=== PATIENT | male | born 1955 | race Hispanic/Latino ===

== ENCOUNTER 2023-06-07 16:02 | Inpatient (IN) | payer OTHER ==
[2023-06-07] MEDS ORDERED: FAMOTIDINE 20 MG/2 ML VIAL IV ONE (16:34)
[2023-06-07] MEDS ORDERED: FENTANYL CITR 100 MCG/2 ML ONE (16:34)
[2023-06-07] MEDS ORDERED: ONDANSETRON 4 MG/2 ML VIAL ONE (16:34)
[2023-06-07] MEDS ORDERED: NA CHLORIDE 0.9% 1,000 ML ONE (16:35)
[2023-06-07 16:55] LABS: Absolute Lymphocytes (CBC) 1.8 K/uL (0.7-4.9); Hematocrit 42.5 % (39.6-49.0); Lymphocytes % 17.9 % (15.3-44.8); MCV 97.5 fL (80-100); Platelets 239 thou/uL (152-406); RBC Red Blood Cell Count 4.36 M/uL (4.33-5.43)
--- NOTE | 2023-06-07 17:02 | RAD REPORT ---
[facility] 4[facility]30 [facility] CLINICAL HISTORY: ABDOMINAL DISTENTION COMPARISON: CHEST PA AND LAT 2 VIEW dated 03/01/2009; CHEST PA AND LAT 2 VIEW dated 09/07/2008; CHEST PA AND LAT 2 VIEW dated 10/27/2005 TECHNIQUE: Portable AP view of the chest. FINDINGS: The lungs are clear. No pneumothorax or effusion. The cardiomediastinal contours are unre markable. IMPRESSION: No acute cardiopulmonary process.
[2023-06-07] MEDS ORDERED: MAGNESIUM SULFATE 1 gm IVPB 1 GM/100 ML BAG IV ONE (17:16)
[2023-06-07 17:30] LABS: Protime INR 1.65
[2023-06-07 18:10] LABS: Albumin 3.3 g/dL (3.4-5.0); Bilirubin Direct 0.1 mg/dL (0-0.2); Bilirubin Indirect, Calculated 0.5 mg/dL (0.2-0.8); Bilirubin Total 0.6 mg/dL (0.2-1.0); Potassium 4.8 mEq/L (3.5-5.1); Protein, Total 7.5 g/dL (6.4-8.2); Troponin High Sensitivity 11.8 pg/mL (<58.9)
--- NOTE | 2023-06-07 18:40 | ER ---
Nurse's Notes [facility] Name: Issa Escobar Age: 67 yrs Sex: Male : 1955 Arrival Date: 06/07/2023 Time: 16:02 Bed 5 Private MD: John Contreras Diagnosis: Abdominal tenderness-RIGHT FLANK;Acute kidney failure, unspecified;Persistent atrial fibrillation-WITH RVR;FPC (current) use of anticoagulants-ELIQUIS;Hydronephrosis with renal and ureteral calculous obstruction-2 MM UVJ Presentation: 06/07 16:18 Chief complaint: Patient states: R flank pain, bloating since night. No fever ll1 or N/V/D. Coronavirus screen: Vaccine status: Patient reports receiving the 2nd dose of the covid vaccine. Client denies travel out of the [place] in the last 14 days. At this time, the client does not indicate any symptoms associated with coronavirus-19. Ebola Screen: Patient denies travel to an Ebola-affected area in the 21 days before illness onset. Initial Sepsis Screen: Does the patient meet any 2 criteria? No. Patient's initial sepsis screen is negative. Does the patient have a suspected source of infection? Yes: Acute abdominal pain. Risk Assessment: Do you want to hurt yourself or someone else? Patient reports no desire to harm self or others. Onset of symptoms was June 04, 2023. 16:18 Method Of Arrival: Ambulatory ll1 16:18 Acuity: JACKY 2 ll1 Triage Assessment: 16:20 General: Appears uncomfortable, Behavior is calm, cooperative, appropriate for age. ll1 Pain: Complains of pain in R flank Pain currently is 2 out of 10 on a pain scale. GI: Reports lower abdominal pain, upper abdominal pain, bloating. Historical: - Allergies: 16:13 No Known Allergies; ll1 - PMHx: 16:13 Transient cerebral ischemia; stroke 2017; Hypertensive disorder; Hypercholesterolemia; ll1 - PSHx: 16:13 Cholecystectomy; hernia repair; B carpal tunnel repair; ll1 - Immunization history:: Adult Immunizations up to date. - Social history:: Smoking status: Patient denies any tobacco usage or history of. - Family history:: not pertinent. Screenin:30 [facility] ED Fall Risk Assessment (Adult) Score/Fall Risk Level 0 - 2 = Low Risk hb Oriented to surroundings, Maintained a safe environment, Educated pt \T\ family on fall prevention, incl call for assistance when getting out of bed. Abuse screen: Denies threats or abuse. Denies injuries from another. Nutritional screening: No deficits noted. Tuberculosis screening: No symptoms or risk factors identified. Assessment: 16:30 General: Appears in no apparent distress. Behavior is calm, cooperative. Pain: Pain hb currently is 7 out of 10 on a pain scale. Neuro: Level of Consciousness is awake, alert, obeys commands, Oriented to person, place, time, situation. Cardiovascular: Patient's skin is warm and dry. Respiratory: Respiratory effort is even, unlabored, Respiratory pattern is regular, symmetrical. GI: No signs and/or symptoms were reported involving the gastrointestinal system. Reports FLANK PAIN. : No signs and/or symptoms were reported regarding the genitourinary system. EENT: No signs and/or symptoms were reported regarding the EENT system. Derm: Skin is pink, warm \T\ dry. Musculoskeletal: No signs and/or symptoms reported regarding the musculoskeletal system. 18:09 Reassessment: Patient appears in no apparent distress at this time. Patient and/or hb family updated on plan of care and expected duration. Pain level reassessed. Patient is alert, oriented x 3, equal unlabored respirations, skin warm/dry/pink. 19:44 Reassessment: Unable to call report at this time. Nurse not available. tl4 Vital Signs: 16:18 BP 131 / 100; Pulse 128; Resp 18; Temp 98.7; Pulse Ox 98% ; Weight 89.81 kg; Height 5 ll1 ft. 6 in. ; Pain 2/10; 16:30 BP 131 / 87; Pulse 116; Resp 20; Pulse Ox 98% ; tl4 18:10 BP 124 / 86; Pulse 105; Resp 16; Pulse Ox 99% on R/A; hb 20:15 BP 129 / 97; Pulse 108; Resp 20; Pulse Ox 100% on R/A; tl4 16:18 Body Mass Index 31.96 (89.81 kg, 167.64 cm) ll1 16:18 Pain Scale: Adult ll1 [place] Coma Score: 18:31 Eye Response: spontaneous(4). Motor Response: obeys commands(6). Verbal Response: amelia oriented(5). Total: 15. NIH Stroke Scale Scores: 18:31 NIHSS Score: 0 amelia ED Course: 16:05 Patient arrived in ED. mr 16:05 John Contreras is Private Physician. mr 16:09 Arm band placed on Patient placed in an exam room, on a stretcher. tl4 16:17 Sravan Branham MD is Attending Physician. amelia 16:20 Triage completed. ll1 16:30 Patient has correct armband on for positive identification. Provided Education on: hb Tests, result times, medications. 16:30 No provider procedures requiring assistance completed. hb 16:32 XRAY Chest (1 view) In Process Unspecified. EDMS 18:08 Leslie Bird, MAC is Primary Nurse. hb 18:38 Spenser Lepe MD is Hospitalizing Provider. amelia 18:41 Abdomen In Process Unspecified. EDMS 20:30 Patient admitted, IV remains in place. tl4 Administered Medications: 16:42 Drug: Ondansetron IVP 4 mg IVP once; over 2 minutes Route: IVP; Site: right antecubital;hb 20:32 Follow up: Response: No adverse reaction tl4 16:42 Drug: Famotidine IVP 20 mg IVP once; dilute with 10 mL 0.9% NaCl; give over 2 minutes hb Route: IVP; Site: right antecubital; 20:30 Follow up: Response: No adverse reaction tl4 16:43 Drug: NS 0.9% IV 1000 ml IV at 1 bolus Per protocol; 1000 mL bolus Route: IV; Rate: 1 hb bolus; Site: right antecubital; 20:31 Follow up: Response: No adverse reaction; IV Status: Completed infusion; IV Intake: tl4 1000ml 16:43 Drug: fentaNYL (PF) IVP 50 mcg IVP once Route: IVP; Site: right antecubital; hb 20:32 Follow up: Response: No adverse reaction tl4 17:15 Drug: Magnesium Sulfate IVPB 1 grams IVPB once over 1 hrs Route: IVPB; Infused Over: 1 hb hrs; Site: right antecubital; 20:31 Follow up: Response: No adverse reaction; IV Status: Completed infusion; IV Intake: tl4 100ml 20:13 Drug: Rocephin IV 1 grams IV at per protocol once; Given slow IV push per pharmacy nw1 instructions Route: IV; Rate: per protocol; Site: right antecubital; 20:30 Follow up: Response: No adverse reaction; IV Status: Completed infusion tl4 20:14 Drug: Metoprolol PO 50 mg PO once Route: PO; nw1 20:30 Follow up: Response: No adverse reaction tl4 20:14 Drug: Flomax PO 0.4 mg PO once Route: PO; nw1 20:30 Follow up: Response: No adverse reaction tl4 Medication: 16:30 VIS not applicable for this client. hb Intake: 20:31 IV: 100ml; Total: 100ml. tl4 20:31 IV: 1000ml; Total: 1100ml. tl4 Outcome: 18:39 Decision to Hospitalize by Provider. amelia 20:29 Admitted to Med/surg accompanied by nurse, family with patient, via wheelchair, room tl4 221, with chart, Report called to MAC Carrasquillo 20:29 Condition: good 20:53 Patient left the ED. cm10 NIH Stroke Scale - NIH Stroke Score Date: 06/07/2023 Time: 18:31 Total Score = 0 10. Dysarthria (speech clarity - read or repeat words) - 0(Normal) 11. Extinction and Inattention (visual/tactile/auditory/spatial/personal) - 0(No abnormality) 1a. Level of Consciousness (LOC) - 0(Alert) 1b. Level of Consciousness (LOC) (Month \T\ Age) - 0(Both) 1c. LOC Commands (Open \T\ Closes Eyes/Stockroom Supervisor) - 0(Both) 2. Best Gaze (Lateral Gaze Paresis) - 0(Normal) 3. Visual Field Loss - 0(No visual loss) 4. Facial Palsy - 0(Normal) 5a. Left Arm: Motor (10-second hold) - 0(No drift) 5b. Right Arm: Motor (10-second hold) - 0(No drift) 6a. Left Leg: Motor (5-second hold - always test supine) - 0(No drift) 6b. Right Leg: Motor (5-second hold - always test supine) - 0(No drift) 7. Limb Ataxia (finger/nose \T\ heel/ramirez - test with eyes open) - 0(Absent) 8. Sensory Loss (pinprick arms/legs/face) - 0(Normal) 9. Best Language: Aphasia (description/naming/reading) - 0(No aphasia) Initials: [facility] Signatures: Dispatcher [employer] Sravan Ferrera MD MD cha Rivera, Ramona, [facility] Reg mr Leslie Bird, RN RN Kamari Carmichael RN RN ll1 Chantell العلي RN RN cm10 Tanya Cross RN RN nw1 [facility], Ramiro 4
--- NOTE | 2023-06-07 18:40 | EDPHYS ---
Physician Documentation [facility] Name: Issa Escobar Age: 67 yrs Sex: Male : 1955 Arrival Date: 06/07/2023 Time: 16:02 Bed 5 Private MD: John Contreras ED Physician Sravan Branham HPI: 06/07 18:31 This 67 yrs old Male presents to ER via Ambulatory with complaints of amelia Abdominal Pain, Back Pain. 18:31 The patient presents with pain that is acute, with no known mechanism of injury. The amelia symptoms are located in the low back, right mid back and right low back. Onset: The symptoms/episode began/occurred 2 day(s) ago. The pain radiates to the right mid back and right low back. Associated signs and symptoms: The patient has no apparent associated signs or symptoms. The problem was sustained from unknown cause. Modifying factors: The patient symptoms are alleviated by nothing. Severity of symptoms: At their worst the symptoms were moderate, in the emergency department the symptoms are unchanged. The patient has not experienced similar symptoms in the past. Historical: - Allergies: 16:13 No Known Allergies; ll1 - PMHx: 16:13 Transient cerebral ischemia; stroke 2017; Hypertensive disorder; Hypercholesterolemia; ll1 - PSHx: 16:13 Cholecystectomy; hernia repair; B carpal tunnel repair; ll1 - Immunization history:: Adult Immunizations up to date. - Social history:: Smoking status: Patient denies any tobacco usage or history of. - Family history:: not pertinent. ROS: 18:31 Constitutional: Negative for fever, chills, and weight loss, Eyes: Negative for injury, amelia pain, redness, and discharge, ENT: Negative for injury, pain, and discharge, Neck: Negative for injury, pain, and swelling, Respiratory: Negative for shortness of breath, cough, wheezing, and pleuritic chest pain, Abdomen/GI: Negative for abdominal pain, nausea, vomiting, diarrhea, and constipation, : Negative for injury, bleeding, discharge, and swelling, MS/Extremity: Negative for injury and deformity, Skin: Negative for injury, rash, and discoloration, Neuro: Negative for headache, weakness, numbness, tingling, and seizure, Psych: Negative for depression, anxiety, suicide ideation, homicidal ideation, and hallucinations, Allergy/Immunology: Negative for hives, rash, and allergies, Endocrine: Negative for neck swelling, polydipsia, polyuria, polyphagia, and marked weight changes, 18:31 Cardiovascular: Positive for palpitations, 18:31 Back: Positive for pain at rest, pain with movement, radiated pain, of the right mid back and right low back, Exam: 18:31 Constitutional: This is a well developed, well nourished patient who is awake, alert, amelia and in no acute distress. Head/Face: Normocephalic, atraumatic. Eyes: Pupils equal round and reactive to light, extra-ocular motions intact. Lids and lashes normal. Conjunctiva and sclera are non-icteric and not injected. Cornea within normal limits. Periorbital areas with no swelling, redness, or edema. ENT: Nares patent. No nasal discharge, no septal abnormalities noted. Tympanic membranes are normal and external auditory canals are clear. Oropharynx with no redness, swelling, or masses, exudates, or evidence of obstruction, uvula midline. Mucous membranes moist. Neck: Trachea midline, no thyromegaly or masses palpated, and no cervical lymphadenopathy. Supple, full range of motion without nuchal rigidity, or vertebral point tenderness. No Meningismus. Chest/axilla: Normal chest wall appearance and motion. Nontender with no deformity. No lesions are appreciated. Cardiovascular: Regular rate and rhythm with a normal S1 and S2. No gallops, murmurs, or rubs. Normal PMI, no JVD. No pulse deficits. Respiratory: Lungs have equal breath sounds bilaterally, clear to auscultation and percussion. No rales, rhonchi or wheezes noted. No increased work of breathing, no retractions or nasal flaring. Abdomen/GI: Soft, non-tender, with normal bowel sounds. No distension or tympany. No guarding or rebound. No evidence of tenderness throughout. Male : Normal genitalia with no discharge or lesions. Skin: Warm, dry with normal turgor. Normal color with no rashes, no lesions, and no evidence of cellulitis. MS/ Extremity: Pulses equal, no cyanosis. Neurovascular intact. Full, normal range of motion. Neuro: Awake and alert, GCS 15, oriented to person, place, time, and situation. Cranial nerves II-XII grossly intact. Motor strength 5/5 in all extremities. Sensory grossly intact. Cerebellar exam normal. Normal gait. Psych: Awake, alert, with orientation to person, place and time. Behavior, mood, and affect are within normal limits. 18:31 ECG was reviewed by the Attending Physician. 18:31 Back: pain, that is mild, of the right mid back, ROM is normal, normal spinal alignment noted, CVA tenderness, is absent, vertebral tenderness, is not appreciated, muscle spasm, is not present, Vital Signs: 16:18 BP 131 / 100; Pulse 128; Resp 18; Temp 98.7; Pulse Ox 98% ; Weight 89.81 kg; Height 5 ll1 ft. 6 in. ; Pain 2/10; 16:30 BP 131 / 87; Pulse 116; Resp 20; Pulse Ox 98% ; tl4 18:10 BP 124 / 86; Pulse 105; Resp 16; Pulse Ox 99% on R/A; hb 20:15 BP 129 / 97; Pulse 108; Resp 20; Pulse Ox 100% on R/A; tl4 16:18 Body Mass Index 31.96 (89.81 kg, 167.64 cm) ll1 16:18 Pain Scale: Adult ll1 NIH Stroke Scale Scores: 18:31 NIHSS Score: 0 amelia Ree Coma Score: 18:31 Eye Response: spontaneous(4). Motor Response: obeys commands(6). Verbal Response: amelia oriented(5). Total: 15. MDM: 16:17 Patient medically screened. amelia 18:35 Differential diagnosis: chronic back pain, Fatigue Fracture Hydronephrosis Joint Injury amelia Metastatic Disease Neoplasm Obesity Osteoarthritis Pyelonephritis Renal Infarction ruptured disc, Scoliosis spinal injury, sprain, Ureterolithiasis vertebral fracture. Data reviewed: vital signs, nurses notes, lab test result(s), EKG, radiologic studies, CT scan, plain films. Consideration of Admission/Observation Patient was admitted/placed on observation. Escalation of care including admission/observation considered. I considered the following discharge prescriptions or medication management in the emergency department Medications were administered in the Emergency Department. See MAR. Independent interpretation of the following test(s) in the Emergency Department EKG: See my EKG interpretation above. Test considered but Not performed: Ultrasound NO RENAL USG. Historians other than the Patient: PT WELL INFORMED. Care significantly affected by the following chronic conditions: Hypertension, Obesity, CVA, HIGH CHLESTEROL. Counseling: I had a detailed discussion with the patient and/or guardian regarding the historical points, exam findings, and any diagnostic results supporting the discharge/admit diagnosis, lab results, radiology results, the need for further work-up and treatment in the hospital. 06/07 16:18 Order name: Basic Metabolic Panel; Complete Time: 18:28 [facility] 06/07 16:18 Order name: CBC with Diff; Complete Time: 18:28 [facility] 06/07 16:18 Order name: LFT's; Complete Time: 18:28 [facility] 06/07 16:18 Order name: Magnesium; Complete Time: 18:28 [facility] 06/07 16:18 Order name: NT PRO-BNP; Complete Time: 18:28 [facility] 06/07 16:18 Order name: PT-INR; Complete Time: 18:28 [facility] 06/07 16:18 Order name: Troponin HS; Complete Time: 18:28 [facility] 06/07 16:18 Order name: Lipase; Complete Time: 18:28 [facility] 06/07 16:18 Order name: Urinalysis w/ reflexes [facility] 06/07 16:55 Order name: TSH; Complete Time: 18:28 [facility] 06/07 19:16 Order name: CBC with Automated Diff [facility] 06/07 19:16 Order name: CBC with Automated Diff EDMS 06/07 19:16 Order name: Comprehensive Metabolic Panel [facility] 06/07 19:16 Order name: Comprehensive Metabolic Panel [facility] 06/07 16:18 Order name: XRAY Chest (1 view); Complete Time: 18:28 [facility] 06/07 18:25 Order name: Abdomen [facility]UT 06/07 16:18 Order name: EKG; Complete Time: 16:18 [facility] 06/07 16:18 Order name: Cardiac monitoring; Complete Time: 16:43 [facility] 06/07 16:18 Order name: EKG - Nurse/Tech; Complete Time: 16:43 [facility] 06/07 16:18 Order name: IV Saline Lock; Complete Time: 16:43 [facility] 06/07 16:18 Order name: Labs collected and sent; Complete Time: 16:43 [facility] 06/07 16:18 Order name: O2 Per Protocol; Complete Time: 16:43 [facility] 06/07 16:18 Order name: O2 Sat Monitoring; Complete Time: 16:43 [facility] 06/07 16:59 Order name: Misc. Order: recollect green top; Complete Time: 18:04 EC:31 Rate is 103 beats/min. Rhythm is irregularly irregular. QRS [place] is Normal. [place] interval amelia is normal. QRS interval is normal. QT interval is normal. No Q waves. T waves are Normal. No ST changes noted. Clinical impression: Atrial Fibrillation. Interpreted by me. Reviewed by me. Administered Medications: 16:42 Drug: Ondansetron IVP 4 mg IVP once; over 2 minutes Route: IVP; Site: right antecubital;hb 20:32 Follow up: Response: No adverse reaction tl4 16:42 Drug: Famotidine IVP 20 mg IVP once; dilute with 10 mL 0.9% NaCl; give over 2 minutes hb Route: IVP; Site: right antecubital; 20:30 Follow up: Response: No adverse reaction tl4 16:43 Drug: NS 0.9% IV 1000 ml IV at 1 bolus Per protocol; 1000 mL bolus Route: IV; Rate: 1 hb bolus; Site: right antecubital; 20:31 Follow up: Response: No adverse reaction; IV Status: Completed infusion; IV Intake: tl4 1000ml 16:43 Drug: fentaNYL (PF) IVP 50 mcg IVP once Route: IVP; Site: right antecubital; hb 20:32 Follow up: Response: No adverse reaction tl4 17:15 Drug: Magnesium Sulfate IVPB 1 grams IVPB once over 1 hrs Route: IVPB; Infused Over: 1 hb hrs; Site: right antecubital; 20:31 Follow up: Response: No adverse reaction; IV Status: Completed infusion; IV Intake: tl4 100ml 20:13 Drug: Rocephin IV 1 grams IV at per protocol once; Given slow IV push per pharmacy nw1 instructions Route: IV; Rate: per protocol; Site: right antecubital; 20:30 Follow up: Response: No adverse reaction; IV Status: Completed infusion tl4 20:14 Drug: Metoprolol PO 50 mg PO once Route: PO; nw1 20:30 Follow up: Response: No adverse reaction tl4 20:14 Drug: Flomax PO 0.4 mg PO once Route: PO; nw1 20:30 Follow up: Response: No adverse reaction tl4 Disposition Summary: 06/07/23 18:39 Hospitalization Ordered Notes: Provider: Spenser Lepe cha Location: Telemetry/MedSurg (Inpatient) amelia Condition: Stable amelia Problem: new amelia Symptoms: have improved amelia Bed/Room Type: Standard amelia Hospitalization Status: Inpatient Admission(06/07/23 18:44) amelia Room Assignment: 221(06/07/23 19:36) as6 Diagnosis - Abdominal tenderness - RIGHT FLANK amelia - Acute kidney failure, unspecified amelia - Persistent atrial fibrillation - WITH RVR amelia - ad terminal makeup operator (current) use of anticoagulants - ELIQUIS amelia - Hydronephrosis with renal and ureteral calculous obstruction - 2 MM UVJ(06/07/23 amelia 19:18) Forms: - Medication Reconciliation Form amelia - SBAR form amelia - Leadership Thank You Letter [facility] NIH Stroke Scale - NIH Stroke Score Date: 06/07/2023 Time: 18:31 Total Score = 0 10. Dysarthria (speech clarity - read or repeat words) - 0(Normal) 11. Extinction and Inattention (visual/tactile/auditory/spatial/personal) - 0(No abnormality) 1a. Level of Consciousness (LOC) - 0(Alert) 1b. Level of Consciousness (LOC) (Month \T\ Age) - 0(Both) 1c. LOC Commands (Open \T\ Closes Eyes/Grain Trimmer) - 0(Both) 2. Best Gaze (Lateral Gaze Paresis) - 0(Normal) 3. Visual Field Loss - 0(No visual loss) 4. Facial Palsy - 0(Normal) 5a. Left Arm: Motor (10-second hold) - 0(No drift) 5b. Right Arm: Motor (10-second hold) - 0(No drift) 6a. Left Leg: Motor (5-second hold - always test supine) - 0(No drift) 6b. Right Leg: Motor (5-second hold - always test supine) - 0(No drift) 7. Limb Ataxia (finger/nose \T\ heel/ramirez - test with eyes open) - 0(Absent) 8. Sensory Loss (pinprick arms/legs/face) - 0(Normal) 9. Best Language: Aphasia (description/naming/reading) - 0(No aphasia) Initials: amelia Signatures: Dispatcher [employer] EDSravan Meier MD MD cha Baxter, Heather, RN RN Kamari Valentino RN RN ll1 Ebenezer Fong RN RN as6 Karrie Lofotn [id number] Tanya Cross RN RN nw1 Ramiro Reid tl4 Corrections: (The following items were deleted from the chart) 18:25 16:18 Abdomen Pelvis W Con+CT.RAD.BRZ ordered. EDMS EDMS 18:44 18:39 Observation amelia amelia 19:18 18:45 Hydronephrosis with renal and ureteral calculous obstruction amelia amelia 19:36 18:39 amelia as6
--- NOTE | 2023-06-07 19:09 | P.HP ---
Certification for Inpatient Patient admitted to: Inpatient With expected LOS: >2 Midnights Patient will require the following post-hospital care: None Practitioner: I am a practitioner with admitting privileges, knowledge of patient current condition, hospital course, and medical plan of care. Services: Services provided to patient in accordance with Admission requirements found in Title 42 Section 412.3 of the Code of Federal Regulations Patient History Date of Service: 06/07/23 Reason for admission: Abdominal Pain History of Present Illness: 67-year-old male with a past medical history of TAA/stroke, hypertension, hyperlipidemia, atrial fibrillation on amiodarone and Eliquis brought to ER with abdominal pain and back pain which has been going on for the last few days. Denies any trauma. Pain is located in the right mid back and lower back, intermittent, nonradiating, 6 out of 10 in severity now. Dull aching pain, denies any dysuria. Denies any fever or chills. No nausea vomiting or diarrhea. No sick contacts. Denies any chest pain or shortness of breath. Patient was seen in the ER and was assessed and found to have acute kidney injury had a CT of the abdomen pelvis which was consistent with distal ureteric stone of 2 mm size causing mild hydronephrosis of the right side of the kidney and was admitted for further management . Allergies No Known Allergies Allergy (Verified 02/10/14 11:25) Home medications list reviewed: Yes - Past Medical/Surgical History Past Medical History: Reviewed- Non-Contributory -: Atrial fibrillation History of TIA -: Hypertension Past Surgical History: Reviewed- Non-Contributory - Family History Family History: Reviewed- Non-Contributory - Social History Smoking Status: Never smoker Review of Systems 10-point ROS is otherwise unremarkable Gastrointestinal: Abdominal Pain Physical Examination - Vital Signs Temperature: 98.9 F Blood Pressure: 136/84 Pulse: 110 Respirations: 18 Pulse Ox (%): 96 - Physical Exam General: Alert, In no apparent distress, Oriented x3 HEENT: Atraumatic, Normocephalic Neck: Supple Respiratory: Clear to auscultation bilaterally, Normal air movement Cardiovascular: Normal S1 S2, No gallops, No murmurs, Other (Tachycardic ) Capillary refill: <2 Seconds Gastrointestinal: Soft and benign, W/out hepatosplenomegaly, No ascites, Tenderness Musculoskeletal: No clubbing, No swelling Integumentary: No rashes, No breakdown Neurological: Normal gait, Normal strength at 5/5 x4 extr, Normal tone, Sensation intact, Cranial nerves 3-12 intact, Normal affect Lymphatics: No axilla or inguinal lymphadenopathy - Studies Laboratory Data (last 24 hrs) 06/07/23 06/07/23 06/07/23 17:23 16:31 16:31 WBC 10.00 Hgb 14.8 Hct 42.5 Plt Count 239 PT 17.9 H INR 1.65 Sodium 136 Potassium 4.8 BUN 23 H Creatinine 2.18 H Glucose 98 Magnesium 2.0 Total Bilirubin 0.6 AST 73 H ALT 56 Alkaline Phosphatase 72 Lipase 19 Imagings Data: CLINICAL HISTORY: ABD PAIN COMPARISON: No comparisons TECHNIQUE: Thin cut axial CT imaging of the abdomen and pelvis was performed without IV contrast. Multiplanar reformats were generated and reviewed. All CT scans are performed using dose optimization technique as appropriate and may include automated exposure control or mA/KV adjustment according to patient size. FINDINGS: No suspicious findings in the lung bases. The liver, spleen, adrenal glands, and pancreas show no suspicious findings. Gallbladder was surgically removed. Symmetric renal contour, without suspicious parenchymal findings within limits of noncontrast technique. Mild right hydroureteronephrosis. 2 mm distal right ureter calculus, see axial image 72/95. Other nonobstructing bilateral renal calculi not exceeding 3 mm. No dilated bowel loops or bowel wall thickening. Appendix is unremarkable. No free air, free fluid or inflammatory stranding. No hernia, mass or bulky lymphadenopathy. The urinary bladder is decompressed limiting evaluation. No suspicious bony findings. IMPRESSION: Mild right hydroureteronephrosis. 2 mm distal right ureter calculus seems to be the reason for obstruction. Other nonobstructing bilateral renal calculi not exceeding 3 mm. Assessment and Plan - Problems (Diagnosis) (1) RITA (acute kidney injury) Current Visit: Yes Status: Acute Plan: Monitor renal parameters Baseline creatinine is 1.3 Electrolytes monitor and replace accordingly Started on IV hydration Monitor closely under telemetry (2) Obstructive uropathy Current Visit: Yes Status: Acute Plan: CT findings noted 2 mm stone in distal ureter Causing hydronephrosis mild in the right side We will add on Flomax IV hydration May need urology consult if not better (3) Ureteric stone Current Visit: Yes Status: Acute Plan: Found to have distal Ureteric stone 2 mm size IV hydration Flomax Expecting passage with supportive management Patient may need cystoscopy if pain is not better Pain control for ureteric colic (4) H/O TIA (transient ischemic attack) and stroke Current Visit: Yes Status: Chronic Plan: Continue home medications History of TIA status post tPA Monitor neurotelemetry (5) Atrial fibrillation Current Visit: Yes Status: Chronic Plan: Patient has history of A-fib On amiodarone Will continue amiodarone for now Will hold Eliquis in view of possible cystoscopy needed Will bridge with Lovenox Discharge Plan: Home Plan to discharge in: 48 Hours - Advance Directives Does patient have a Living Will: No Does patient have a Durable POA for Healthcare: No - Code Status/Comfort Care Code Status: Full Code Time Spent Managing Pts Care (In Minutes): 48
[2023-06-07] MEDS ORDERED: ONDANSETRON 4 MG/2 ML VIAL IV PRN (19:10)
[2023-06-07] MEDS ORDERED: ACETAMINOPHEN 500 MG TAB PO PRN (19:10)
[2023-06-07] MEDS ORDERED: MORPHINE 2 MG/ML SYR IV PRN (19:10)
--- NOTE | 2023-06-07 19:18 | RAD REPORT ---
EXAM DESCRIPTION: CT - Abdomen Pelvis Wo Contrast - 06/07/2023 6:39 pm CLINICAL HISTORY: ABD PAIN COMPARISON: No comparisons TECHNIQUE: Thin cut axial CT imaging of the abdomen and pelvis was performed without IV contrast. Mu ltiplanar reformats were generated and reviewed. All CT scans are performed using dose optimization technique as appropriate and may include automated exposure control or mA/KV adjustment according to patient size. FINDINGS: No suspicious findings in the lung bases. The liver, spleen, adrenal glands, and pancreas show no suspicious findings. Gallbladder was surgical ly removed. Symmetric renal contour, without suspicious parenchymal findings within limits of noncontrast techniq ue. Mild right hydroureteronephrosis. 2 mm distal right ureter calculus, see axial image 72/95. Other nonobstructing bilateral renal calculi not exceeding 3 mm. No dilated bowel loops or bowel wall thickening. Appendix is unremarkable. No free air, free fluid or inflammatory stranding. No hernia, mass or bulky lymphadenopathy. The urinary bladder is decompresse d limiting evaluation. No suspicious bony findings. IMPRESSION: Mild right hydroureteronephrosis. 2 mm distal right ureter calculus seems to be the casandra son for obstruction. Other nonobstructing bilateral renal calculi not exceeding 3 mm. The findings were communicated to Sravan Branham on 06/07/2023 at 19:14 hours.
[2023-06-07 19:37] LABS: Specific Gravity 1.014 (1.005-1.030); Urine Bacteria None Seen /HPF (<20); Urine Bilirubin NEGATIVE (Negative); Urine Blood Negative (Negative); Urine Clarity Clear (Clear); Urine Color Yellow (Yellow); Urine Glucose NEGATIVE (Negative); Urine Mucus Slight /HPF (None Seen); Urine Protein NEGATIVE (Negative); Urine RBC <5 /HPF (None Seen); Urine Urobilinogen Normal (Normal)
[2023-06-07] MEDS ORDERED: CEFTRIAXONE 1000 MG/VIAL ONE (19:52)
[2023-06-07] MEDS ORDERED: METOPROLOL XL 50 MG TAB PO ONE (19:52)
[2023-06-07] MEDS ORDERED: TAMSULOSIN 0.4 MG SR CAP ONE (19:52)
[2023-06-07] MEDS ORDERED: NA CHLORIDE 0.9% 50 ML ONE (19:53)
[2023-06-07 20:50] VITALS: BMI 32.7
[2023-06-07] MEDS: TAMSULOSIN 0.4 MG SR CAP PO SCH (21:00)
[2023-06-07 21:13] VITALS: O2SAT 93
[2023-06-07] MEDS: NA CHLORIDE 0.9% 1,000 ML IV SCH (22:14)
[2023-06-07] MEDS ORDERED: ALPRAZOLAM 0.5 MG TABLET PO PRN (22:15)
[2023-06-08 03:44] LABS: Absolute Lymphocytes (CBC) 1.7 K/uL (0.7-4.9); Hematocrit 36.5 % (39.6-49.0); Lymphocytes % 26.6 % (15.3-44.8); MCV 97.6 fL (80-100); MPV 8.2 fL (7.6-11.3); Platelets 222 thou/uL (152-406); RBC Red Blood Cell Count 3.74 M/uL (4.33-5.43)
[2023-06-08 04:09] LABS: Albumin 2.9 g/dL (3.4-5.0); Bilirubin Total 0.4 mg/dL (0.2-1.0)
[2023-06-08] MEDS: METOPROLOL XL 100 MG TAB PO SCH (10:13)
[2023-06-08] MEDS: AMIODARONE HCL 200 MG TAB PO SCH (10:14)
[2023-06-08] MEDS: MULTIVITAMIN TAB PO SCH (10:14)
[2023-06-08] MEDS: ESCITALOPRAM 20 MG TAB PO SCH (10:14)
[2023-06-08] MEDS: NA CHLORIDE 0.9% 1,000 ML IV SCH ×2 (10:19→20:22)
--- NOTE | 2023-06-08 11:07 | P.PN ---
Subjective Date of Service: 06/08/23 Chief Complaint: Abdominal Pain Pt is resting comfortably on a chair when I saw him. He reports right flank pain. He has not passed nura 2mm stone yet. Pt denies any fever, nausea or vomiting. No other complaints. Review of Systems 10-point ROS is otherwise unremarkable General: Unremarkable Eyes: Unremarkable ENT: Unremarkable Respiratory: Unremarkable Cardiovascular: Unremarkable Gastrointestinal: Other (right flank pain) Genitourinary: Unremarkable Musculoskeletal: Unremarkable Integumentary: Unremarkable Neurological: Unremarkable Lymphatics: Unremarkable Physical Examination - Vital Signs Temperature: 97.9 F Blood Pressure: 109/63 Pulse: 103 Respirations: 14 Pulse Ox (%): 96 - Physical Exam General: Alert, In no apparent distress, Oriented x3 HEENT: Atraumatic, Normocephalic, PERRLA Neck: Supple, 2+ carotid pulse no bruit Respiratory: Clear to auscultation bilaterally, Normal air movement Cardiovascular: No edema, Normal pulses, Regular rate/rhythm, Normal S1 S2 Capillary refill: <2 Seconds Gastrointestinal: Normal bowel sounds, Soft and benign, Non-distended Musculoskeletal: No clubbing, No swelling Integumentary: No rashes, No breakdown Neurological: Normal gait, Normal speech, Normal strength at 5/5 x4 extr Lymphatics: No axilla or inguinal lymphadenopathy - Studies Laboratory Data (last 24 hrs) 06/07/23 06/07/23 06/07/23 17:23 16:31 16:31 WBC 10.00 Hgb 14.8 Hct 42.5 Plt Count 239 PT 17.9 H INR 1.65 Sodium 136 Potassium 4.8 BUN 23 H Creatinine 2.18 H Glucose 98 Magnesium 2.0 Total Bilirubin 0.6 AST 73 H ALT 56 Alkaline Phosphatase 72 Lipase 19 Assessment And Plan - Plan RITA: Likely prerenal. Baseline Cr is 1.3. Current Cr is 2.08. Will continue IVF, avoid nephrotoxins and monitor renal function. Right 2mm ureteric stone/ Obstructive uropathy: Per CT abd/pelvis. Will continue IVF so that pt will pass the stone. Continue to strain urine. Hx of TIA: Continue home meds. A. fib: Will continue telemetry, lovenox, and amiodarone. Will hold Eliquis for now. Obesity: Pt was advised to lose weight. DVT ppx: lovenox. Code: full Discharge Plan: Home Plan to discharge in: 24 Hours - Code Status/Comfort Care Code Status Assessed: Yes
--- NOTE | 2023-06-08 12:27 | EKG ---
Test Date: 2023-06-07 Test Time: 16:41:14 [employer]: MANJULA MEASUREMENT RESULTS: Intervals: Rate: 103 [place]: QRSD: 94 QT: 356 QTc: 466 [place]: P: AK: QRS: -34 T: 1 INTERPRETIVE STATEMENTS: Atrial fibrillation Left axis deviation Inferior infarct, age undetermined Abnormal ECG Compared to ECG 02/10/2014 11:33:16 Left-axis deviation now present Myocardial infarct finding now present Sinus rhythm no longer present Electronically Signed On 06-08-23 12:25:48 [employer] BU[employer] by Salomón Barber
[2023-06-08] MEDS: TAMSULOSIN 0.4 MG SR CAP PO SCH (20:22)
[2023-06-08] MEDS ORDERED: ATORVASTATIN 80 MG TAB PO SCH (21:00)
[2023-06-08] MEDS ORDERED: HYDROCODONE/APAP 10/325 TAB PO PRN (22:05)
[2023-06-09] MEDS: NA CHLORIDE 0.9% 1,000 ML IV SCH ×2 (03:00→12:01)
[2023-06-09] MEDS ORDERED: NA CHLORIDE 0.9% 1,000 ML IV ONE (07:55)
[2023-06-09] MEDS: METOPROLOL XL 100 MG TAB PO SCH (08:54)
[2023-06-09] MEDS: ESCITALOPRAM 20 MG TAB PO SCH (08:55)
[2023-06-09] MEDS: AMIODARONE HCL 200 MG TAB PO SCH (08:55)
[2023-06-09] MEDS: MULTIVITAMIN TAB PO SCH (08:55)
[2023-06-09 09:28] LABS: Absolute Lymphocytes (CBC) 1.5 K/uL (0.7-4.9); Hematocrit 35.3 % (39.6-49.0); Lymphocytes % 26.9 % (15.3-44.8); MCV 97.7 fL (80-100); MPV 7.4 fL (7.6-11.3); Platelets 205 thou/uL (152-406); RBC Red Blood Cell Count 3.61 M/uL (4.33-5.43)
[2023-06-09 10:40] LABS: Potassium 4.3 mEq/L (3.5-5.1)
[2023-06-09 12:21] VITALS: TEMP 97.9
--- NOTE | 2023-06-09 15:05 | P.DS ---
Admission Date: 06/07/23 Discharge Date: 06/09/23 Disposition: ROUTINE DISCHARGE Discharge Condition: GOOD Reason for Admission: Abdominal Pain Brief History of Present Illness: 67-year-old male with a past medical history of TAA/stroke, hypertension, hyperlipidemia, atrial fibrillation on amiodarone and Eliquis brought to ER with abdominal pain and back pain which has been going on for the last few days. Denies any trauma. Pain is located in the right mid back and lower back, intermittent, nonradiating, 6 out of 10 in severity now. Dull aching pain, denies any dysuria. Denies any fever or chills. No nausea vomiting or diarrhea. No sick contacts. Denies any chest pain or shortness of breath. Patient was seen in the ER and was assessed and found to have acute kidney injury had a CT of the abdomen pelvis which was consistent with distal ureteric stone of 2 mm size causing mild hydronephrosis of the right side of the kidney and was admitted for further management . Hospital Course: Pt is a 67-year-old male with a past medical history of TAA/stroke, hypertension, hyperlipidemia, atrial fibrillation on amiodarone and Eliquis who presented with right abdominal pain and back pain which started a few days before this admission. The abd pain was located in the right mid back and lower back. It was intermittent, nonradiating, and achy pain with severity of 6/10. On admission, CT abd/pelvis showed a 2mm distal ureteric stone causing mild hydronephrosis of the right side of the kidney. We admitted pt and gave IVF, flomax and consulted urology. We continued to strain the urine but pt was not sure whether he passed the stone. the abd pain improved and pt was advised to continue to strain the urine at home. He will follow up with the urologist. We advised to pt check his BP at home before taking the metoprolol. Hypotension improved with normal saline bolus. Jarrett improved. Pt was advised to follow up with PCP. He advised to lose weight. Pt was in NAD prior to discharge. Vital Signs/Physical Exam: Temp Pulse Resp BP Pulse Ox 97.9 F 83 16 111/84 96 06/09/23 12:00 06/09/23 12:00 06/09/23 12:00 06/09/23 12:00 06/09/23 12:00 Laboratory Data at Discharge: WBC 5.50 thou/uL (4.3-10.9) 06/09/23 09:15 Hgb 12.1 g/dL (13.6-17.9) L 06/09/23 09:15 Hct 35.3 % (39.6-49.0) L 06/09/23 09:15 Plt Count 205 thou/uL (152-406) 06/09/23 09:15 PT 17.9 SECONDS (9.5-12.5) H 06/07/23 16:31 INR 1.65 06/07/23 16:31 Sodium 139 mEq/L (136-145) 06/09/23 09:15 Potassium 4.3 mEq/L (3.5-5.1) 06/09/23 09:15 BUN 19 mg/dL (7-18) H 06/09/23 09:15 Creatinine 1.95 mg/dL (0.70-1.30) H 06/09/23 09:15 Glucose 108 mg/dL (74-106) H 06/09/23 09:15 Magnesium 2.0 mg/dL (1.6-2.4) 06/07/23 17:23 Total Bilirubin 0.4 mg/dL (0.2-1.0) 06/08/23 02:10 AST 34 U/L (15-37) 06/08/23 02:10 ALT 46 U/L (16-61) 06/08/23 02:10 Alkaline Phosphatase 60 U/L (45-117) 06/08/23 02:10 Lipase 19 U/L (13-75) 06/07/23 17:23 Home Medications: Alprazolam [Xanax] 0.5 mg PO QIDP PRN 06/07/23 Amiodarone HCl [Cordarone*] 200 mg PO DAILY 06/07/23 Apixaban [Eliquis] 5 mg PO BID 06/07/23 Atorvastatin Calcium [Lipitor] 80 mg PO BEDTIME 06/07/23 Bimatoprost [Lumigan Opthalmic Drops*] 1 gtt EACH EYE BEDTIME 06/07/23 Escitalopram [Lexapro*] 20 mg PO DAILY 06/07/23 Multivitamin 1 tab PO DAILY 06/07/23 Tadalafil [Cialis] 5 mg PO DAILY 06/07/23 Metoprolol Succinate [Toprol Xl*] 100 mg PO DAILY 06/08/23 Hydrocodone 10/APAP 325 [[place] 10/325*] 1 tab PO Q4H PRN 3 Days #18 tab 06/09/23 Tamsulosin [Flomax*] 0.4 mg PO BEDTIME 10 Days #10 cap 06/09/23 New Medications: Tamsulosin [Flomax*] 0.4 mg PO BEDTIME 10 Days #10 cap Hydrocodone 10/APAP 325 [[place] 10/325*] 1 tab PO Q4H PRN 3 Days #18 tab PRN Reason: Pain Scale 8-10 (Severe) Physician Discharge Instructions: Continue ad daren activity. Take home meds as prescribed. Check BP at home before taking metoprolol. Hold it if systolic BP is < 120. Follow up with PCP and Urology within 1 weeks. Continue to strain urine at home. Diet: AHA Activity: Ad daren Followup: Shiva Yanes MD [Primary Care Provider] - Chris Lucia [ACTIVE - CAN ADMIT] -
--- NOTE | 2023-06-09 15:30 | RAD REPORT ---
EXAM DESCRIPTION: US - Renal Ultrasound-Complete - 06/09/2023 3:19 pm CLINICAL HISTORY: RITA Flank pain COMPARISON: Abdomen Pelvis Wo Contrast dated 06/07/2023 FINDINGS: Both kidneys are normal in size, shape and echotexture. The right kidney measures 9.7 x 5.5 x 4.9 cm. Small right renal calculi. No hydronephrosis, focal mas s or perinephric fluid. The left kidney measures 10.5 x 6.4 x 5.2 cm. No hydronephrosis, focal mass or perinephric fluid. The urinary bladder is incompletely distended without gross abnormality seen. IMPRESSION: Small right renal calculi, otherwise negative study.
[2023-06-09 16:45] VITALS: BP 109/76
== END 2023-06-09 17:39 | disposition home or self-care (01) | DRG 683 ==
LOC: ER 16:02 → ERHOLD 19:10 → 2ND 19:57
PROVIDERS: ADMIT Family Medicine; ATTEND Hospitalist
DX: N17.9 Acute kidney failure, unspecified (principal); I48.19 Other persistent atrial fibrillation; E78.00 Pure hypercholesterolemia, unspecified; N13.2 Hydronephrosis with renal and ureteral calculous obstruction; I10 Essential (primary) hypertension; E66.9 Obesity, unspecified; Z68.32 Body mass index [BMI] 32.0-32.9, adult; Z90.49 Acquired absence of other specified parts of digestive tract; Z86.73 Personal history of transient ischemic attack (TIA), and cerebral infarction without residual deficits; Z79.01 Long term (current) use of anticoagulants; Z79.899 Other long term (current) drug therapy
CPT/HCPCS: 36415; 71045; 74176; 76770; 80048; 80053; 80076; 81001; 83690; 83735; 83880; 84443; 84484; 85025; 85610; 93005; 96361; 96365; 96366; 96375; 99285; J0696; J2270; J2405; J3010; J3475; J7030